=== PATIENT | male | born 1985 | race Caucasian/White ===

== ENCOUNTER 2018-09-27 13:25 | Emergency (ER) | payer OTHER ==
--- NOTE | 2018-09-27 15:09 | ED ---
Abdominal Pain/Male - HPI Summary HPI Summary: 32 yr old male with 7 days of upper abdominal, epigastric pain. The pain is achey, not associated with movement, breathing, eating. It is constant. No NVD. No black stool. No other complaints. The patient states he does drink ETOH, but 2-3 beers at most in a day. No prior surgeries or past med history. Pain is moderate. The pain does radiate into his back at the same level as the front of the abdomen. - History of Current Complaint Chief Complaint: UCGI Stated Complaint: ABD PAINx3 DAYS,NAUSEA Time Seen by Provider: 09/27/18 14:56 Pain Intensity: 3 - Allergies/Home Medications Allergies/Adverse Reactions: Allergies Allergy/AdvReac Type Severity Reaction Status Date / Time No Known Allergies Allergy Verified 09/27/18 14:16 Home Medications: Home Medications NK [No Home Medications Reported] 09/27/18 [History Confirmed 09/27/18] PMH/Surg Hx/FS Hx/Imm Hx Infectious Disease History: No Infectious Disease History: Denies: Traveled Outside the [place] in Last 30 Days - Family History Known Family History: Positive: None - Social History Occupation: Employed Full-time Alcohol Use: Weekly Substance Use Type: Reports: None Smoking Status (MU): Never Smoked Tobacco Review of Systems Constitutional: Negative Eyes: Negative Negative: Chest Pain Negative: Shortness Of Breath Positive: Abdominal Pain. Negative: Vomiting, Diarrhea, Nausea All Other Systems Reviewed And Are Negative: Yes Physical Exam Triage Information Reviewed: Yes Vital Signs On Initial Exam: Initial Vitals Temp Pulse Resp BP Pulse Ox 97 F 60 16 136/72 100 09/27/18 14:16 09/27/18 14:16 09/27/18 14:16 09/27/18 14:16 09/27/18 14:16 Vital Signs Reviewed: Yes Appearance: Positive: Well-Appearing, No Pain Distress Skin: Positive: Warm, Skin Color Reflects Adequate Perfusion Head/Face: Positive: Normal Head/Face Inspection Eyes: Positive: EOMI, PEE ENT: Positive: Pharynx normal, TMs normal Neck: Positive: Nontender Respiratory/Lung Sounds: Positive: Clear to Auscultation, Breath Sounds Present Cardiovascular: Positive: RRR. Negative: Murmur Abdomen Description: Positive: Nontender. Negative: CVA Tenderness (R), CVA Tenderness (L) Musculoskeletal: Positive: Strength/ROM Intact Neurological: Positive: Sensory/Motor Intact, Alert, Oriented to Person Place, Time, CN Intact II-III Psychiatric: Positive: Normal - Mellisa Coma Scale Best Eye Response: 4 - Spontaneous Best Motor Response: 6 - Obeys Commands Best Verbal Response: 5 - Oriented Coma Scale Total: 15 Diagnostics - Vital Signs Vital Signs Temp Pulse Resp BP Pulse Ox 09/27/18 14:16 97 F 60 16 136/72 100 - Laboratory Lab Statement: Any lab studies that have been ordered have been reviewed, and results considered in the medical decision making process. Abdominal Pain Male Course/Dx - Course Course Of Treatment: 32 yr old male with the complaint of epigastric abdominal pain. He will go to the ER from here for further evaluation. - Diagnoses Provider Diagnoses: Epigastric abdominal pain, Elevated blood pressure reading Discharge - Sign-Out/Discharge Documenting (check all that apply): Patient Departure All imaging exams completed and their final reports reviewed: No Studies - Discharge Plan Condition: Good Disposition: HOME-RECOMMEND TO ED Patient Education Materials: Acute Abdominal Pain (ED), Hypertension (ED) Referrals: Gertrude Pelletier MD [Primary Care Provider] - 3 Days Additional Instructions: You need to go to the ER immediately after leaving here for further work up and diagnosis of your problem. - Billing Disposition and Condition Condition: GOOD Disposition: Home-Recommend to ED
== END 2018-09-27 15:20 | disposition home health service (06) ==
LOC: UCCORT 13:25
DX: R10.13 Epigastric pain (principal); R03.0 Elevated blood-pressure reading, without diagnosis of hypertension; R10.10 Upper abdominal pain, unspecified
CPT/HCPCS: 99202; G0463